=== PATIENT | male | born 1955 ===

== ENCOUNTER 2024-04-29 02:34 | Inpatient (IN) | payer OTHER ==
[2024-04-29] MEDS: Sodium Chloride 0.9% 1,000 ML IV ONE (03:05)
[2024-04-29] MEDS: Ketorolac 30 MG/ML SDV IVPUSH ONE (03:42)
[2024-04-29] MEDS: Ondansetron 4 MG/2 ML SDV IVPUSH ONE (03:45)
[2024-04-29 04:45] LABS: A/G RATIO 1.5 (0.8-2.0); ALBUMIN 3.7 g/dL (3.4-5.0); ANION GAP 16.4 mmol/L (5.0-15.0); BILIRUBIN TOTAL 3.9 mg/dL (0.0-1.0); BUN/CREATININE RATIO 17.4 (6-25); CALCIUM 8.4 mg/dL (8.5-10.1); CARBON DIOXIDE,CO2 24.5 mmol/L (21.0-32.0); CREATININE 1.55 mg/dL (0.70-1.30); EST CRCL DRUG DOSING (CG) 44.13 mL/min; POTASSIUM,K 3.9 mmol/L (3.5-5.1); PROTEIN TOTAL,TP 6.1 g/dL (6.4-8.2)
[2024-04-29] MEDS ORDERED: Sodium Chloride 0.9% 250 ML IV SCH (05:00)
[2024-04-29] MEDS: Sodium Chloride 0.9% 1,000 ML IV SCH ×2 (05:00→07:15)
[2024-04-29 05:04] LABS: BASOPHILS ABSOLUTE AUTO 0.01 K/uL (0.02-0.10); BASOPHILS PERCENT AUTO 0.1 % (0.0-0.5); EOSINOPHILS ABSOLUTE AUTO 0.01 K/uL (0.04-0.40); EOSINOPHILS PERCENT AUTO 0.1 % (1.0-5.0); HEMATOCRIT 42.1 % (40.0-54.0); HEMOGLOBIN 14.8 g/dL (13.0-18.0); LYMPHOCYTES ABSOLUTE AUTO 0.52 K/uL (1.50-4.00); LYMPHOCYTES PERCENT AUTO 4.1 % (20.0-40.0); MEAN CORPUSCULAR HEMOGLOBIN 34.1 pg (27.0-32.0); MEAN CORPUSCULAR HGB CONC 35.2 g/dL (31.0-35.0); MEAN CORPUSCULAR VOLUME 97 fL (76-96); MEAN PLATELET VOLUME 11.2 fL (6.0-10.0); MONOCYTES ABSOLUTE AUTO 0.68 K/uL (0.20-0.80); MONOCYTES PERCENT AUTO 5.3 % (3.0-10.0); NEUTROPHILS ABSOLUTE AUTO 11.51 K/uL (2.00-7.50); NEUTROPHILS PERCENT AUTO 90.4 % (45.0-70.0); PLATELET COUNT,PLT 133 K/uL (150-400); RED BLOOD CELL COUNT 4.34 M/uL (4.50-6.50); RED CELL DISTRIBUTION WIDTH 12.2 % (11.0-16.0); WHITE BLOOD CELL COUNT,WBC 12.7 K/uL (4.0-11.0)
[2024-04-29 05:06] LABS: APPEARANCE,URINE CLEAR (CLEAR); BILIRUBIN,URINE MODERATE (NEGATIVE); GLUCOSE,URINE >=1000 mg/dL (NEGATIVE); KETONES,URINE 40 mg/dL (NEGATIVE); LEUKOCYTE ESTERASE,URINE NEGATIVE (NEGATIVE); NITRITE,URINE NEGATIVE (NEGATIVE); OCCULT BLOOD,URINE NEGATIVE (NEGATIVE); PROTEIN,URINE NEGATIVE (NEGATIVE)
[2024-04-29 05:07] LABS: COLOR,URINE OTHER
[2024-04-29] MEDS ORDERED: 50% Dextrose in Water 50 ML Syringe IVPUSH PRN ×2 (06:50→12:25)
[2024-04-29] MEDS ORDERED: Glucagon,Human Recombinant 1 MG Vial IM PRN ×2 (06:50→12:25)
[2024-04-29] MEDS: Levothyroxine 112 MCG Tab PO SCH (07:49)
[2024-04-29] MEDS: Insulin Regular, Human 100 Units/ML 3 ML Vial IV SCH (07:50)
[2024-04-29] MEDS: D5 1/2 NS w/ 20 mEq/L KCl 1,000 ML IV SCH (09:44)
[2024-04-29 12:35] LABS: A/G RATIO 1.1 (0.8-2.0); ALBUMIN 2.9 g/dL (3.4-5.0); ANION GAP 17.4 mmol/L (5.0-15.0); BILIRUBIN TOTAL 2.9 mg/dL (0.0-1.0); BUN/CREATININE RATIO 17.9 (6-25); CALCIUM 7.6 mg/dL (8.5-10.1); CARBON DIOXIDE,CO2 22.1 mmol/L (21.0-32.0); CREATININE 1.56 mg/dL (0.70-1.30); EST CRCL DRUG DOSING (CG) 43.85 mL/min; POTASSIUM,K 4.5 mmol/L (3.5-5.1); PROTEIN TOTAL,TP 5.6 g/dL (6.4-8.2)
[2024-04-29] MEDS: Insulin Glargine,Human Rec. Analog 100 Units/ML 3 ML Pen SUBCUT ONE (12:46)
[2024-04-29] MEDS: HYDROmorphone 2 MG/ML Syringe IVPUSH PRN (15:34)
[2024-04-30] MEDS: D5 1/2 NS w/ 20 mEq/L KCl 1,000 ML IV SCH (05:18)
[2024-04-30 08:05] LABS: BASOPHILS ABSOLUTE AUTO 0.01 K/uL (0.02-0.10); BASOPHILS PERCENT AUTO 0.1 % (0.0-0.5); EOSINOPHILS ABSOLUTE AUTO 0.03 K/uL (0.04-0.40); EOSINOPHILS PERCENT AUTO 0.4 % (1.0-5.0); HEMATOCRIT 37.8 % (40.0-54.0); HEMOGLOBIN 12.7 g/dL (13.0-18.0); LYMPHOCYTES PERCENT AUTO 5.1 % (20.0-40.0); MEAN CORPUSCULAR HEMOGLOBIN 33.9 pg (27.0-32.0); MEAN CORPUSCULAR HGB CONC 33.6 g/dL (31.0-35.0); MEAN CORPUSCULAR VOLUME 101 fL (76-96); MEAN PLATELET VOLUME 11.4 fL (6.0-10.0); MONOCYTES ABSOLUTE AUTO 0.44 K/uL (0.20-0.80); MONOCYTES PERCENT AUTO 5.6 % (3.0-10.0); NEUTROPHILS ABSOLUTE AUTO 7.03 K/uL (2.00-7.50); NEUTROPHILS PERCENT AUTO 88.8 % (45.0-70.0); PLATELET COUNT,PLT 104 K/uL (150-400); RED BLOOD CELL COUNT 3.75 M/uL (4.50-6.50); RED CELL DISTRIBUTION WIDTH 13.1 % (11.0-16.0); WHITE BLOOD CELL COUNT,WBC 7.9 K/uL (4.0-11.0)
[2024-04-30 09:00] LABS: A/G RATIO 0.8 (0.8-2.0); ALBUMIN 2.7 g/dL (3.4-5.0); ANION GAP 15.1 mmol/L (5.0-15.0); BILIRUBIN TOTAL 1.9 mg/dL (0.0-1.0); CARBON DIOXIDE,CO2 23.4 mmol/L (21.0-32.0); CREATININE 1.25 mg/dL (0.70-1.30); EST CRCL DRUG DOSING (CG) 54.72 mL/min; POTASSIUM,K 4.5 mmol/L (3.5-5.1); PROTEIN TOTAL,TP 5.9 g/dL (6.4-8.2)
[2024-04-30] MEDS: Ondansetron 4 MG/2 ML SDV IVPUSH PRN (16:08)
[2024-05-01] MEDS: Acetaminophen 325 MG Tab PO PRN (02:24)
[2024-05-01 08:54] LABS: BASOPHILS ABSOLUTE AUTO 0.02 K/uL (0.02-0.10); BASOPHILS PERCENT AUTO 0.4 % (0.0-0.5); EOSINOPHILS ABSOLUTE AUTO 0.05 K/uL (0.04-0.40); HEMATOCRIT 37.6 % (40.0-54.0); HEMOGLOBIN 12.8 g/dL (13.0-18.0); LYMPHOCYTES ABSOLUTE AUTO 0.68 K/uL (1.50-4.00); LYMPHOCYTES PERCENT AUTO 13.4 % (20.0-40.0); MEAN CORPUSCULAR HEMOGLOBIN 33.7 pg (27.0-32.0); MEAN CORPUSCULAR VOLUME 99 fL (76-96); MEAN PLATELET VOLUME 11.3 fL (6.0-10.0); MONOCYTES ABSOLUTE AUTO 0.45 K/uL (0.20-0.80); MONOCYTES PERCENT AUTO 8.9 % (3.0-10.0); NEUTROPHILS ABSOLUTE AUTO 3.88 K/uL (2.00-7.50); NEUTROPHILS PERCENT AUTO 76.3 % (45.0-70.0); PLATELET COUNT,PLT 104 K/uL (150-400); RED CELL DISTRIBUTION WIDTH 12.7 % (11.0-16.0); WHITE BLOOD CELL COUNT,WBC 5.1 K/uL (4.0-11.0)
[2024-05-01 09:24] LABS: A/G RATIO 0.8 (0.8-2.0); ALBUMIN 2.5 g/dL (3.4-5.0); ANION GAP 12.6 mmol/L (5.0-15.0); BILIRUBIN TOTAL 0.9 mg/dL (0.0-1.0); BUN/CREATININE RATIO 17.5 (6-25); CALCIUM 8.1 mg/dL (8.5-10.1); CARBON DIOXIDE,CO2 26.5 mmol/L (21.0-32.0); CREATININE 1.03 mg/dL (0.70-1.30); EST CRCL DRUG DOSING (CG) 66.41 mL/min; POTASSIUM,K 4.1 mmol/L (3.5-5.1); PROTEIN TOTAL,TP 5.8 g/dL (6.4-8.2)
[2024-05-01 09:59] LABS: APPEARANCE,URINE CLOUDY (CLEAR); BILIRUBIN,URINE SMALL (NEGATIVE); COLOR,URINE YELLOW; GLUCOSE,URINE >=1000 mg/dL (NEGATIVE); KETONES,URINE 40 mg/dL (NEGATIVE); LEUKOCYTE ESTERASE,URINE NEGATIVE (NEGATIVE); NITRITE,URINE NEGATIVE (NEGATIVE); OCCULT BLOOD,URINE NEGATIVE (NEGATIVE); PH,URINE 5.5 (5.0-8.0); PROTEIN,URINE NEGATIVE (NEGATIVE)
[2024-05-02 08:29] LABS: BASOPHILS ABSOLUTE AUTO 0.02 K/uL (0.02-0.10); BASOPHILS PERCENT AUTO 0.4 % (0.0-0.5); EOSINOPHILS PERCENT AUTO 1.9 % (1.0-5.0); HEMATOCRIT 38.1 % (40.0-54.0); HEMOGLOBIN 13.2 g/dL (13.0-18.0); LYMPHOCYTES ABSOLUTE AUTO 1.19 K/uL (1.50-4.00); LYMPHOCYTES PERCENT AUTO 23.2 % (20.0-40.0); MEAN CORPUSCULAR HEMOGLOBIN 33.4 pg (27.0-32.0); MEAN CORPUSCULAR HGB CONC 34.6 g/dL (31.0-35.0); MEAN CORPUSCULAR VOLUME 97 fL (76-96); MEAN PLATELET VOLUME 10.8 fL (6.0-10.0); MONOCYTES ABSOLUTE AUTO 0.78 K/uL (0.20-0.80); MONOCYTES PERCENT AUTO 15.2 % (3.0-10.0); NEUTROPHILS ABSOLUTE AUTO 3.04 K/uL (2.00-7.50); NEUTROPHILS PERCENT AUTO 59.3 % (45.0-70.0); PLATELET COUNT,PLT 116 K/uL (150-400); RED BLOOD CELL COUNT 3.95 M/uL (4.50-6.50); RED CELL DISTRIBUTION WIDTH 11.8 % (11.0-16.0); WHITE BLOOD CELL COUNT,WBC 5.1 K/uL (4.0-11.0)
[2024-05-02 08:42] LABS: A/G RATIO 0.8 (0.8-2.0); ALBUMIN 2.7 g/dL (3.4-5.0); ANION GAP 14.3 mmol/L (5.0-15.0); BILIRUBIN TOTAL 0.8 mg/dL (0.0-1.0); BUN/CREATININE RATIO 15.1 (6-25); CARBON DIOXIDE,CO2 26.6 mmol/L (21.0-32.0); CREATININE 0.93 mg/dL (0.70-1.30); EST CRCL DRUG DOSING (CG) 73.55 mL/min; POTASSIUM,K 3.9 mmol/L (3.5-5.1); PROTEIN TOTAL,TP 6.1 g/dL (6.4-8.2)
[2024-05-02 09:30] LABS: CALCIUM 8.5 mg/dL (8.5-10.1)
[2024-05-02] MEDS ORDERED: Insulin Regular, Human 100 Units/ML 3 ML Vial SUBCUT SCH (12:00)
== END 2024-05-02 09:53 | disposition home or self-care (01) | DRG 439 ==
LOC: LB.ED 02:34 → LB.MS 06:30
PROVIDERS: ADMIT Surgery; ATTEND Surgery
DX: K85.90 Acute pancreatitis without necrosis or infection, unspecified (principal); K85.10 Biliary acute pancreatitis without necrosis or infection; Z68.41 Body mass index [BMI] 40.0-44.9, adult; E11.9 Type 2 diabetes mellitus without complications; E66.9 Obesity, unspecified; Z79.84 Long term (current) use of oral hypoglycemic drugs; Z79.85 Long-term (current) use of injectable non-insulin antidiabetic drugs; I10 Essential (primary) hypertension; E78.5 Hyperlipidemia, unspecified; E03.9 Hypothyroidism, unspecified; G89.29 Other chronic pain; M54.50 Low back pain, unspecified; G47.30 Sleep apnea, unspecified; Z88.5 Allergy status to narcotic agent; Z88.1 Allergy status to other antibiotic agents; Z79.4 Long term (current) use of insulin; Z79.82 Long term (current) use of aspirin; Z79.899 Other long term (current) drug therapy; Z79.890 Hormone replacement therapy
CPT/HCPCS: 36415; 74022; 74176; 80053; 81003; 83605; 83690; 84484; 85025; 93005; J1885; J2405; J7030 ×2; 51702; 82248; 82947; 83735; 96361; 96374; 96375; 99222; 99232; 99238; 99285-25; A9270-GY; J1170; J1815-GY; J3480